=== PATIENT | female | born 1990 | race Caucasian/White ===

== ENCOUNTER → 2018-10-03 09:28 | Outpatient (CLI) | payer OTHER, SELFPAY ==
[2018-10-03 11:06] LABS: Hematocrit 32.5 % (36-46); Hemoglobin 11.2 g/dL (12.0-16.0)
[2018-10-03 11:41] LABS: GTT (PREG) 1 Hour PP 50gm Dose 110 mg/dL (76-139)
== END ==
PROVIDERS: Visit Provider Family Medicine
DX: Z34.02 Encounter for supervision of normal first pregnancy, second trimester (principal); Z3A.24 24 weeks gestation of pregnancy
CPT/HCPCS: 36415; 82950; 85014; 85018

== ENCOUNTER → 2018-12-26 15:44 | Outpatient (CLI) | payer OTHER, SELFPAY ==
[2018-12-27 18:11] LABS: Strep Grp B PCR NEG for Grp B Strep
== END ==
PROVIDERS: Visit Provider Family Medicine
DX: Z34.03 Encounter for supervision of normal first pregnancy, third trimester (principal); Z3A.36 36 weeks gestation of pregnancy
CPT/HCPCS: 87653

== ENCOUNTER 2019-01-25 23:49 | Inpatient (IN) | payer OTHER, SELFPAY ==
[2019-01-26 00:56] LABS: Add Manual Diff / Slide Review NO; Basophils Absolute Auto 100 /uL (0-100); Basophils Percent Auto 0.7 % (0-2); Eosinophils Absolute Auto 100 /uL (0-450); Hematocrit 39.1 % (36-46); Hemoglobin 13.7 g/dL (12.0-16.0); Lymphocytes Absolute Auto 2200 /uL (1100-4500); Lymphocytes Percent Auto 21.8 % (25-40); Mean Corpuscular HGB Conc 34.9 % (30-36); Mean Corpuscular Hemoglobin 33.5 PG (26-34); Monocytes Absolute Auto 900 /uL (0-900); Neutrophils Absolute Auto 6700 /uL (1500-7000); Neutrophils Percent Auto 67.5 % (50-75); Platelet Count 213 X10^3/uL (150-400); Red Blood Cell Count 4.07 X10^6/uL (4.0-5.2); Red Cell Distribution Width 14.6 % (11.6-14.8)
[2019-01-26] MEDS: LACTATED RINGERS 1,000 ML 100 ML IV ×2 (01:30→05:23)
[2019-01-26 02:30] VITALS: BP 122/75
--- NOTE | 2019-01-26 06:48 | PM.HP.1 ---
History of Present Illness Date Patient Seen: 01/26/19 Time Patient Seen: 05:48 Chief complaint: Labor Narrative: 27-year-old G1 para 0 40 and 4 7 stays consistent with LMP and early ultrasound. Patient is status care in my office at 24 weeks gestational age. She had routine follow-up. Had a weight gain of approximately 15 lb in . Patient's care risk factors include history of anxiety and depression. Her medications during were vitamins folic acid send a stool softener. She had normal blood pressures throughout her care. GBS status was negative. Her labs include as follows blood type A positive antibody screen negative VDRL nonreactive hepatitis-B surface antigen negative GC chlamydia negative rubella immune to hep C negative varicella immune and a please gait screen was negative hemoglobin had a crit 32.5 and 11.2 diabetes screen 110 on the glucose. Ultrasound showed normal anatomy scan and GBS status was negative. Patient states she started cash about 930 last night intermittent. Things became more comfortable around 11 30 they presented to the labor and delivery for at 12:30 p.m.. She was cash regularly. She had intact membranes. heart tones were category 1. Patient received an epidural. My evaluation she is resting comfortably in bed. Vital signs are stable she is afebrile. She says the epidurals working great. Past medical history patient denies a history of thyroid heart blood pressure asthma or allergies. Surgical history ear tubes and was deemed teeth removed. Allergies to Bactrim Gynecological history normal Pap smear no history of STDs Patient History Social History Smoking Status: Never smoker Family & Social History Tobacco & Substance use: Smoking Status Never smoker Meds Home Medications Medication Instructions Recorded Confirmed Type folic acid 0.8 mg capsule 0.8 mg PO DAILY #30 cap 10/03/18 Rx 1 tab PO DAILY 10/03/18 History vitamin,calcium,ikdqhfrs-bdzh-hixli acid tablet polyethylene glycol 3350 17 17 gram PO DAILY #255 gram 11/12/18 Rx gram/dose oral powder docusate sodium 100 mg capsule 100 mg PO BID #30 cap 01/16/19 Rx Allergies Allergy/AdvReac Type Severity Reaction Status Date / Time sulfamethoxazole Allergy Unknown Verified 10/03/18 07:41 [From Bactrim] trimethoprim [From Bactrim] Allergy Unknown Verified 10/03/18 07:41 Exam Vital Signs (past 8 hours): - 01/26/19 02:30 Blood Pressure 122/75 Narrative Exam Narrative: . General: Alert no apparent distress. Affect is appropriate. HEENT: Neck is supple without lymphadenopathy pupils equal round and reactive. Cardio: S1-S2 regular rate and rhythm. Respiratory: Lungs clear to auscultation. Abdomen: Gravid. Extremities: Normal deep tendon reflexes trace edema. [place]: Contractions every 3-5 minutes heart tones: Category 1 Objective Labs Result Diagrams: 01/26/19 00:35 Labs: Laboratory Results - last 24 hr 01/26/19 01/26/19 00:35 00:35 WBC 10.0 RBC 4.07 Hgb 13.7 Hct 39.1 MCV 96.0 MCH 33.5 MCHC 34.9 RDW 14.6 Plt Count 213 Neut % (Auto) 67.5 Lymph % (Auto) 21.8 L [place] % (Auto) 9.0 Eos % (Auto) 1.0 L Baso % (Auto) 0.7 Neut # (Auto) 6700 Lymph # (Auto) 2200 [place] # (Auto) 900 Eos # (Auto) 100 Baso # (Auto) 100 Blood Type A Positive Antibody Screen Negative Assessment & Plan Assessment & Plan narrative: 28-year-old female G1 para 0 at 40 and 4 7 weeks in active labor. GBS status negative rupture membranes positive at complete. She is now complete and pushing. Baby's been doing well she is afebrile vital signs are stable. Continue with expectant management. Reviewed inpatient orders. Consent was reviewed and obtained from patient for admission to the hospital.
[2019-01-26] MEDS: OXYTOCIN 10 UNIT/ML VIAL IM (07:35)
--- NOTE | 2019-01-26 08:14 | P.PCN_ITS ---
Procedures Date/Time Date of procedure: 01/26/19 Time of procedure: 08:12 General Procedure description: Labor procedure note Stage I of labor on approximately 8 hours. Patient presented to labor and delivery floor in active labor cash regularly heart tones were category 1 vital signs were stable she was afebrile she was 40 and 4 7 weeks gestational age. On cervical exam she was 6 cm 80% effaced -2 station. She was cash uncomfortably in requested an epidural which was provided. Patient had good anesthetic results with her epidural. IV fluids and blood was drawn. Patient had stable hemoglobin hematocrit. She was given ice chips. Her pain was comfortable. Patient became complete at approximately 5:30 a.m. this morning. During stage I she had category 1 tracing. Stage II of labor approximately 1 hours and 45 minutes. During stage II category 1 heart tracings. Vital signs are stable she was afebrile. She had rupture of membranes when she became complete with clear fluid. She had delivery of a viable female infant in occiput anterior position. There was no nuchal cord baby delivery of head with that out difficulty and shoulders as well. During the delivery of the head patient had a tear consistent with 2nd degree. After the delivery of the baby mother baby was placed on her abdomen and baby was doing well without concerns after pulsating of the cord the cord was cut and clamped. Stage III colon delivery of intact placenta approximately 15 minutes. She was given IM Pitocin 10 units. She had repair in the usual fashion of a second- degree tear with a 2 0 Vicryl stitch. Bleeding was anticipated uterus was firm mom and baby were resting comfortably afterwards.
[2019-01-26] MEDS: IBUPROFEN 600 MG TABLET PO ×3 (09:57→23:05)
[2019-01-26] MEDS: LANOLIN OINT 7 GM 1 APPLIC TOP (16:57)
[2019-01-26] MEDS: HYDROCODONE/ACET 5/325 TABLET 1 TAB PO (16:58)
[2019-01-26] MEDS: DERMOPLAST SPRAY 20% 60 ML 1 SPRAY TOP (17:00)
[2019-01-26] MEDS: DOCUSATE 250 MG CAPSULE PO (23:06)
[2019-01-27 05:11] LABS: Hematocrit 28.5 % (36-46)
--- NOTE | 2019-01-27 09:53 | PM.PN.1 ---
Subjective Date Patient Seen: 01/27/19 Time Patient Seen: 09:53 Interval history: day 1. Doing well. Up ambulating. Has had a urination no bowel movement yet tolerating diet. Pain is moderately well controlled bleeding as it is anticipated is going well other than mild sore nipples. The bottom is mildly sore from repair. Exam Narrative Exam Narrative: General: Alert no apparent distress. Affect is appropriate. HEENT: Neck is supple without lymphadenopathy pupils equal round and reactive. Cardio: S1-S2 regular rate and rhythm. Respiratory: Lungs clear to auscultation. Abdomen: Uterus firm. Extremities: Normal deep tendon reflexes trace edema. Objective Labs Result Diagrams: 01/27/19 04:51 Labs: Laboratory Results - last 24 hr 01/27/19 04:51 Hgb 10.0 L Hct 28.5 L Assessment & Plan Assessment & Plan narrative: day 1. Doing well. Ambulating urine bowels working well. Bleeding as anticipated hemoglobin hematocrit stable. No significant lower extremity edema. Continue with care discharge tomorrow.
[2019-01-27] MEDS: PRENATAL VIT,CALC/IRON/FOLIC 1 TABLET 1 TAB PO (11:35)
[2019-01-27] MEDS: IBUPROFEN 600 MG TABLET PO ×2 (11:35→17:23)
[2019-01-27] MEDS: DOCUSATE 250 MG CAPSULE PO (11:35)
--- NOTE | 2019-01-28 07:29 | P.DS_ITS ---
History of Present Illness Chief complaint: Labor & delivery Narrative: 27-year-old G1 para 0 40 and 4 7 stays consistent with LMP and early ultrasound. Patient is status care in my office at 24 weeks gestational age. She had routine follow-up. Had a weight gain of approximately 15 lb in . Patient's care risk factors include history of anxiety and depression. Her medications during were vitamins folic acid send a stool softener. She had normal blood pressures throughout her care. GBS status was negative. Her labs include as follows blood type A positive antibody screen negative VDRL nonreactive hepatitis-B surface antigen negative GC chlamydia negative rubella immune to hep C negative varicella immune and a please gait screen was negative hemoglobin had a crit 32.5 and 11.2 diabetes screen 110 on the glucose. Ultrasound showed normal anatomy scan and GBS status was negative. Patient states she started cash about 930 last night intermittent. Thin gs became more comfortable around 11 30 they presented to the labor and delivery for at 12:30 p.m.. She was cash regularly. She had intact membranes. heart tones were category 1. Patient received an epidural. My evaluation she is resting comfortably in bed. Vital signs are stable she is afebrile. She says the epidurals working great. Past medical history patient denies a history of thyroid heart blood pressure asthma or allergies. Surgical history ear tubes and was deemed teeth removed. Allergies to Bactrim Gynecological history normal Pap smear no history of STDs Discharge Providers Date of admission: 01/25/19 23:49 Discharge Date: 01/28/19 Consults: 01/27/19 08:10 Consult to [facility] [employer] Routine Comment: Discharge provider: Loco William MD Summary Discharge Diagnosis: Delivery vaginally viable female infant Routine care Hospital Course: Patient presented to labor and delivery floor in active labor. Patient delivered a female infant without complication. Please see procedure note for details. Her care was routine. On day 1. She was ambulating eating pain was well controlled bleeding was as expected. On day 2. Breast milk was coming in. was improved. Pain was well controlled ambulating without difficulty pain medications were prescribed at the time of discharge. Exam Narrative Exam Narrative: General: Alert no apparent distress. Affect is appropriate. Cash it is uncomfortable. HEENT: Neck is supple without lymphadenopathy pupils equal round and reactive. Cardio: S1-S2 regular rate and rhythm. Respiratory: Lungs clear to auscultation. Abdomen: Uterus firm. Extremities: Normal deep tendon reflexes trace edema. Objective Labs Result Diagrams: 01/27/19 04:51 Discharge Plan Discharge Plan Patient Disposition: Home Discharge Med Rec/Prescriptions Prescriptions: New sennosides [senna] 8.6 mg Tablet 8.6 mg PO BEDTIME Qty: 30 RF: 0 Dermoplast (with menthol) 20-0.5 % Aerosol 1 spray topical Q1HR PRN (Reason: perineal pain) Qty: 30 RF: 0 ibuprofen 600 mg Tablet 600 mg PO Q6HR PRN (Reason: Pain, Mild (1-3)) Qty: 30 RF: 0 docusate sodium 250 mg Capsule 250 mg PO DAILY Qty: 30 RF: 0 Continued docusate sodium [Colace] 100 mg capsule 100 mg PO BID Qty: 30 RF: 0 prenat.vits,madison,fwl-durd-akapp tablet 1 tab PO DAILY RF: 0 folic acid 0.8 mg capsule 0.8 mg PO DAILY Qty: 30 RF: 0 polyethylene glycol 3350 [Miralax] 17 gram/dose powder 17 gram PO DAILY Qty: 255 RF: 2 Visit Report/Discharge Packet Visit Report Forms: Stroke Signs & Symptoms Discharge Data Attending Provider: Evon Green Admit Date/Time: 01/25/19 23:49
[2019-01-28] MEDS: IBUPROFEN 600 MG TABLET PO (08:16)
[2019-01-28] MEDS: PRENATAL VIT,CALC/IRON/FOLIC 1 TABLET 1 TAB PO (08:17)
[2019-01-28] MEDS: DOCUSATE 250 MG CAPSULE PO (08:17)
[2019-01-28 10:51] VITALS: BP 104/57; PULSE 89; RESP 16; TEMP 36.9
== END 2019-01-28 13:45 | disposition home or self-care (01) | DRG 807 ==
PROVIDERS: Family Medicine; Admitting Provider Family Medicine; Visit Provider Family Medicine
DX: O48.0 Post-term pregnancy (principal); Z37.0 Single live birth; O70.1 Second degree perineal laceration during delivery; Z3A.40 40 weeks gestation of pregnancy
CPT/HCPCS: 01967; 36415; 59050; 59410; 85014; 85018; 85025; 86850; 86900; 86901; G0379; J2590